=== PATIENT | female | born 1955 | race Caucasian/White ===

== ENCOUNTER 2016-11-20 13:42 | Emergency (ER) | payer BC, MEDICAID ==
[~2016-11-20] VITALS: Ht 167.6 cm; Wt 77.1 kg
[2016-11-20] MEDS ORDERED: SODIUM CHLORIDE 0.9% 1,000 ML IV ONE (15:04)
[2016-11-20] MEDS ORDERED: KETOROLAC TROMETH 30 MG/ML 1ML VIAL IV ONE (15:15)
[2016-11-20] MEDS ORDERED: METOCLOPRAMIDE HCL 5MG/ml INJ 2ml VIAL IV ONE (15:15)
[2016-11-20 15:18] LABS: Basophils # (auto) 0.1 uL; CONDITION Y; DEFINITIVE SEE PRINTOUT; Eosinophils # (auto) 0.1 uL; Eosinophils % (auto) 1.6 % (0.0-7.0); Lymphocytes # (auto) 2.2 uL; Monocytes # (auto) 0.5 uL; Neutrophils # (auto) 4.2 uL; White Blood Cell 7.1 10^3/uL (4.4-10.8)
[2016-11-20 15:23] LABS: Basophils % (auto) 1.2 % (0.0-2.0); Hematocrit 41.8 % (36.0-46.0); Lymphocytes % (auto) 30.6 % (10.0-50.0); Mean Corpuscular Hemoglobin 33.8 pg (28.0-32.0); Mean Corpuscular Hgb Conc. 33.4 g/dL (32.0-36.0); Mean Corpuscular Volume 101.2 fL (80.0-100.0); Mean Platelet Volume 8.8 fL (7.4-10.4); Monocytes % (auto) 7.4 % (0.0-12.0); Neutrophils % (auto) 59.2 % (37.0-80.0); Platelet Count (auto) 278 10^3/uL (140-450); Red Cell Distribution Width 15.4 % (11.6-16.0)
[2016-11-20 15:36] LABS: Albumin 3.8 g/dL (3.4-5.0); BUN/Creatinine Ratio 16.1; Bilirubin, Total 0.7 mg/dL (0.2-1.0); Calcium 8.8 mg/dL (8.5-10.1); Magnesium 2.5 mg/dL (1.6-2.6); Potassium 3.8 mmol/L (3.5-5.1); Total Protein 7.1 g/dL (6.4-8.2)
[2016-11-20] MEDS ORDERED: cefTRIAXone 1GM/50ML D5W 50 ML IV ONE ×2 (16:50→17:00)
[2016-11-20 17:37] VITALS: BP 122/56
== END 2016-11-20 17:52 | disposition home or self-care (01) ==
LOC: ER 13:42
DX: N39.0 Urinary tract infection, site not specified (principal); K80.20 Calculus of gallbladder without cholecystitis without obstruction; M06.9 Rheumatoid arthritis, unspecified; E78.5 Hyperlipidemia, unspecified; E07.9 Disorder of thyroid, unspecified; Z90.49 Acquired absence of other specified parts of digestive tract; Z88.8 Allergy status to other drugs, medicaments and biological substances; Z88.1 Allergy status to other antibiotic agents; Z90.710 Acquired absence of both cervix and uterus
CPT/HCPCS: 36415; 71020; 76705; 80053; 83735; 85025; 96361; 96365; 96375; 99285; J0696; J1885; J2765; J7030

== ENCOUNTER 2018-07-30 11:33 | Emergency (ER) | payer MEDICAID ==
[~2018-07-30] VITALS: Ht 162.6 cm; Wt 74.8 kg
[2018-07-30] MEDS ORDERED: FAMOTIDINE (10MG/ML) 2ML VL IV ONE (12:00)
[2018-07-30 12:14] LABS: Urine WBC None Seen /hpf (0 - 5)
[2018-07-30 12:29] LABS: Urine Bacteria NONE SEEN /hpf (None Seen); Urine Blood Negative /uL (Negative); Urine Specific Gravity 1.014 (1.001-1.035)
[2018-07-30 13:32] LABS: Basophils # (auto) 0.1 uL; Basophils % (auto) 1.3 % (0.0-2.0); Eosinophils # (auto) 0.1 uL; Eosinophils % (auto) 1.5 % (0.0-7.0); Hematocrit 42.3 % (36.0-46.0); Hemoglobin 13.9 g/dL (12.2-16.2); Lymphocytes # (auto) 1.7 uL; Lymphocytes % (auto) 31.5 % (10.0-50.0); Mean Corpuscular Hemoglobin 33.2 pg (28.0-32.0); Mean Corpuscular Volume 100.6 fL (80.0-100.0); Monocytes # (auto) 0.5 uL; Monocytes % (auto) 8.9 % (0.0-12.0); Neutrophils # (auto) 3.1 uL; Neutrophils % (auto) 56.8 % (37.0-80.0); Nucleated Red Blood Cells % 0.1 %; Platelet Count (auto) 260 10^3/uL (140-450); White Blood Cell 5.4 10^3/uL (4.4-10.8)
[2018-07-30 13:45] LABS: Alanine Aminotransferase 39 U/L (13-56); Albumin 3.8 g/dL (3.4-5.0); Anion Gap 6 (5-15); Aspartate Aminotransferase 28 U/L (15-37); Blood Urea Nitrogen 12 mg/dL (7-18); Carbon Dioxide 29 mmol/L (21-32); Chloride 108 mmol/L (98-107); Glucose 102 mg/dL (74-106); Potassium 3.9 mmol/L (3.5-5.1); Sodium 143 mmol/L (136-145)
[2018-07-30 13:52] LABS: Alkaline Phosphatase 80 U/L (45-117); BUN/Creatinine Ratio 22.2; Bilirubin, Total 0.5 mg/dL (0.2-1.0); GFR African American 146 mL/min; GFR Non-African American 121 mL/min; Total Protein 6.9 g/dL (6.4-8.2)
[2018-07-30 15:22] VITALS: BP 116/67
== END 2018-07-30 15:22 | disposition home or self-care (01) ==
LOC: ER 11:33
DX: R10.84 Generalized abdominal pain (principal); E78.5 Hyperlipidemia, unspecified; E07.9 Disorder of thyroid, unspecified; Z90.49 Acquired absence of other specified parts of digestive tract; Z88.1 Allergy status to other antibiotic agents; Z88.8 Allergy status to other drugs, medicaments and biological substances; Z91.040 Latex allergy status; Z90.710 Acquired absence of both cervix and uterus
CPT/HCPCS: 36415; 74176; 80053; 81001; 83690; 84484; 85025; 93005; 94761; 96374; 99284; J3490

== ENCOUNTER 2019-03-03 12:05 | Emergency (ER) | payer MEDICAID ==
[~2019-03-03] VITALS: Ht 165.1 cm; Wt 74.8 kg
[2019-03-03 15:28] VITALS: BP 106/82
[2019-03-03] MEDS ORDERED: DexAMETHasone SOD PHOS 10MG/1ML VIAL INJ IM ONE (17:45)
== END 2019-03-03 18:09 | disposition home or self-care (01) ==
LOC: ER 12:13
DX: M54.16 Radiculopathy, lumbar region (principal); M25.552 Pain in left hip; K21.9 Gastro-esophageal reflux disease without esophagitis; E78.5 Hyperlipidemia, unspecified; Z90.49 Acquired absence of other specified parts of digestive tract; Z90.710 Acquired absence of both cervix and uterus; Z87.11 Personal history of peptic ulcer disease; Z88.1 Allergy status to other antibiotic agents; Z91.040 Latex allergy status; Z88.8 Allergy status to other drugs, medicaments and biological substances
CPT/HCPCS: 96372; 99283; J1100

== ENCOUNTER 2019-06-14 13:39 | Emergency (ER) | payer MEDICAID ==
[~2019-06-14] VITALS: Ht 165.1 cm; Wt 75.3 kg
[2019-06-14 13:49] VITALS: BP 130/85
[2019-06-14] MEDS ORDERED: cefTRIAXone SOD 1,000 MG VL IM ONE (14:30)
== END 2019-06-14 15:03 | disposition home or self-care (01) ==
LOC: ER 13:39
DX: J02.9 Acute pharyngitis, unspecified (principal); K21.9 Gastro-esophageal reflux disease without esophagitis; E07.9 Disorder of thyroid, unspecified; E78.5 Hyperlipidemia, unspecified; Z88.1 Allergy status to other antibiotic agents; Z91.040 Latex allergy status; Z88.8 Allergy status to other drugs, medicaments and biological substances
CPT/HCPCS: 96372; 99283; J0696

== ENCOUNTER 2022-04-04 09:03 | Emergency (ER) | payer OTHER, MEDICAID ==
[~2022-04-04] VITALS: Ht 162.6 cm; Wt 70.8 kg
[2022-04-04] MEDS ORDERED: LIDOCAINE VISCOUS 2% 15ML UD PO ONE (09:45)
[2022-04-04] MEDS ORDERED: MAALOX PLUS or MAALOX 30 ML PO ONE (09:45)
[2022-04-04] MEDS ORDERED: ONDANSETRON ODT 4 MG TAB PO ONE (09:45)
[2022-04-04] MEDS ORDERED: FAMOTIDINE 20 MG TAB PO ONE (09:45)
[2022-04-04 09:46] LABS: Basophils # (auto) 0.1 10 ^3/uL (0-0.2); Basophils % (auto) 1.1 % (0.0-2.0); Eosinophils # (auto) 0 10 ^3/uL (0-0.8); Hematocrit 44.1 % (36.0-46.0); Hemoglobin 14.6 g/dL (12.2-16.2); Lymphocytes # (auto) 0.5 10 ^3/uL (0.4-5.4); Lymphocytes % (auto) 9.8 % (10.0-50.0); Mean Corpuscular Hemoglobin 32.9 pg (28.0-32.0); Mean Corpuscular Hgb Conc. 33.2 g/dL (32.0-36.0); Mean Corpuscular Volume 99.2 fL (80.0-100.0); Monocytes # (auto) 0.9 10 ^3/uL (0-1.3); Monocytes % (auto) 16.2 % (0.0-12.0); Neutrophils # (auto) 3.8 10 ^3/uL (1.6-8.6); Neutrophils % (auto) 72.9 % (37.0-80.0); Red Blood Cells 4.45 10^6/uL (4.0-5.20); White Blood Cell 5.3 10^3/uL (4.4-10.8)
[2022-04-04 10:07] LABS: Albumin 4.4 g/dL (3.4-5.0); Calcium 9.1 mg/dL (8.5-10.1); Potassium 4.1 mmol/L (3.5-5.1)
[2022-04-04 10:10] LABS: BUN/Creatinine Ratio 16.4
[2022-04-04 10:36] LABS: Urine Bacteria NONE SEEN /hpf (None Seen); Urine Blood Negative /uL (Negative); Urine Mucus FEW (None Seen); Urine WBC 1 /hpf (0 - 5)
[2022-04-04] MEDS ORDERED: ONDA-144 PO (12:11)
[2022-04-04 12:25] VITALS: BP 106/64
== END 2022-04-04 12:30 | disposition home or self-care (01) ==
LOC: ER 09:03
DX: B34.9 Viral infection, unspecified (principal); J02.9 Acute pharyngitis, unspecified; K21.9 Gastro-esophageal reflux disease without esophagitis; E78.5 Hyperlipidemia, unspecified; J45.909 Unspecified asthma, uncomplicated; Z90.710 Acquired absence of both cervix and uterus; Z90.49 Acquired absence of other specified parts of digestive tract
CPT/HCPCS: 36415; 71045; 80053; 81001; 84484; 85025; 87804; 93005; 99285; Q0162

== ENCOUNTER 2023-08-15 12:06 | Emergency (ER) | payer OTHER, MEDICAID ==
[~2023-08-15] VITALS: Ht 162.6 cm; Wt 80.0 kg
[~2023-08-15 12:06] MED LIST: ONDA-144 PO
[2023-08-15 13:19] VITALS: BP 115/57; PULSE 75; RESP 18; TEMP 97.6; O2SAT 95
[2023-08-15] MEDS: HYDROcodone-ACET 5/325MG TAB PO ONE (14:32)
== END 2023-08-15 16:04 | disposition home or self-care (01) ==
LOC: ER 12:06
DX: S09.8XXA Other specified injuries of head, initial encounter (principal); M54.2 Cervicalgia; F41.9 Anxiety disorder, unspecified; K21.9 Gastro-esophageal reflux disease without esophagitis; E78.5 Hyperlipidemia, unspecified; E07.9 Disorder of thyroid, unspecified; Z90.49 Acquired absence of other specified parts of digestive tract; Z90.710 Acquired absence of both cervix and uterus; Z90.89 Acquired absence of other organs; Z88.8 Allergy status to other drugs, medicaments and biological substances; Z88.1 Allergy status to other antibiotic agents; Z91.040 Latex allergy status; W17.89XA Other fall from one level to another, initial encounter; Y93.89 Activity, other specified; Y92.89 Other specified places as the place of occurrence of the external cause; Y99.8 Other external cause status
CPT/HCPCS: 70450; 72040; 73564

== ENCOUNTER 2025-03-10 10:14 | Inpatient (IN) | payer MEDICARE, MEDICAID ==
[~2025-03-10] VITALS: Ht 160 cm; Wt 81.0 kg
[~2025-03-10 10:14] MED LIST changes: +ALEN70TA74 PO; +ATOR20TA50 PO; +AZEL0.1S NAS; +CHOL20002 PO; +CICL8SOL21 TOP; +DICY-89 PO; +FOLI-119 PO; +FURO40TA4 PO; +GABA-339 PO; +LIDO2.5C3 EXT; +MELO15TA29 PO; +METH5INJ SC; +PANT40TA57 PO; +POTA-180 PO; +TIZA-142 PO
--- NOTE | 2025-03-10 10:46 | ED.PDOC ---
History of Present Illness HPI Comments This is a 69 year old female presenting to the ED with chief complaint of flank pain and extremity swelling. Patient reports that she has been experiencing right sided flank pain for the past few days that has now radiated across to the left side, now a 8-9/10 in pain. Patient relays that she is also experiencing associated bilateral ankle swelling, nausea, vomiting, diarrhea, fever, chills, dysuria, and urinary frequency over the past 3 weeks. Patient states she was recently worked up by her PCP for possible CHF. Patient denies any headache, syncope, dizziness, abdominal pain, chest pain, or SOB. Chief Complaint: Extremity Swelling Time Seen by MD: 10:43 Primary Care Provider: James Reviewed Notes: Nurses Notes, Medications, Allergies Allergies: Coded Allergies: Bacitracin (Verified Allergy, Unknown, 04/08/15) Ciprofloxacin (Verified Allergy, Unknown, 10/18/17) Latex (Verified Allergy, Unknown, 10/18/17) Neomycin (Verified Allergy, Unknown, 04/08/15) Nitrofurantoin (Verified Allergy, Unknown, 10/18/17) Polymyxin B (Verified Allergy, Unknown, 04/08/15) Promethazine (Verified Allergy, Unknown, 10/18/17) Uncoded Allergies: STEROIDS (Allergy, Unknown, 04/08/15) Home Meds Active Scripts Ondansetron (Zofran) 4 Mg Tab, 4 MG PO Q8HPRN PRN for 3 Days, #9 TAB Prov:ANNMARIE LOUIS MD 04/04/22 Information Source: Patient Mode of Arrival: Ambulatory Severity: Moderate Timing: Weeks Duration: Since onset Prehospital treatment: None Past Medical History PAST MEDICAL HISTORY: Anxiety, Cancer (Skin), GERD, High Lipids, PUD, Thyroid Past Medical History (Other): Prediabetes, gastritis, chronic neck/back pain, Mitral valve prolapse, Rheumatoid arthritis Surgical History: Appendectomy, Cholecystectomy, Hysterectomy, Tonsillectomy CAD TECHNICIAN History: No Pertinent CAD TECHNICIAN History Family History Family History: Reviewed,noncontributory to illness, Family hx of DM, Family hx of Cancer, Family hx of heart sunday Social History Smoker: Non-Smoker Alcohol: Denies ETOH Use Drugs: Denies Drug Use Lives In: Home Constitutional: reports: chills, fever; denies: diaphoresis, fatigue, malaise, sweats, weakness, others EENTM: denies: blurred vision, double vision, ear bleeding, ear discharge, ear drainage, ear pain, ear ringing, eye pain, eye redness, hearing loss, mouth pain, mouth swelling, nasal discharge, nose bleeding, nose congestion, nose andrew n, photophobia, tearing, throat pain, throat swelling, voice changes, others Respiratory: denies: cough, hemoptysis, orthopnea, SOB at rest, shortness of breath, SOB with excertion, stridor, wheezing, others Cardiovascular: reports: edema; denies: chest pain, dizzy spells, diaphoresis, Dyspnea on exertion, irregular heart beat, left arm pain, lightheadedness, palpitations, PND, syncope, others Gastrointestinal: reports: diarrhea, nausea, vomiting; denies: abdomen distended, abdominal pain, blood streaked bowels, constipated, dysphagia, difficulty swallowing, hematemesis, melena, poor appetite, poor fluid intake, rectal bleeding, rectal pain, others Genitourinary: reports: dysuria, flank pain, frequency; denies: abnormal vagina bleeding, burning, dyspareunia, hematuria, incontinence, pain, , vagina discharge, urgency, others Neurological: denies: dizziness, fainting, headache, left sided numbness, left sided weakness, numbness, paresthesia, pre-existing deficit, right sided numbness, right sided weakness, seizure, speech problems, tingling, tremors, weakness, others Musculoskeletal: reports: back pain, neck pain; denies: gout, joint pain, joint swelling, muscle pain, muscle stiffness, others Integumetry: denies: bruises, change in color, change in hair/nails, dryness, laceration, lesions, lumps, rash, wounds, others Allergic/Immunocompromised: denies: Difficulty Healing, Frequent Infections, Hives, Itching, others Hematologic/Lymphatic: denies: anemia, blood clots, easy bleeding, easy bruising, swollen glands, others Endocrine: denies: excessive hunger, excessive sweating, excessive thirst, excessive urination, flushing, intolerance to cold, intolerance to heat, unexplained weight gain, unexplained weight loss, others Psychiatric: denies: anxiety, bipolar disorder, depression, hopeless, panic disorder, schizophrenia, sleepless, suicidal, others All Other Systems: Reviewed and Negative Physical Exam General Appearance: Moderate Distress HEENT: Normal ENT Inspection, Pharynx Normal, TMs Normal Neck: Full Range of Motion, Non-Tender, Normal, Normal Inspection Respiratory: Chest Non-Tender, Lungs Clear, No Accessory Muscle Use, No Respiratory Distress, Normal Breath Sounds Cardiovascular: No Edema, No JVD, No Murmur, No Gallop, Normal Peripheral Pulses, Regular Rate/Rhythm Breast Exam: Deferred Gastrointestinal: No Organomegaly, Non Tender, No Pulsatile Mass, Normal Bowel Sounds, Soft Genitalia: Deferred Pelvic: Deferred Rectal: Deferred Extremities: No calf tenderness, Normal capillary refill, Pedal edema Musculoskeletal : Apperance: Normal Neurologic: Alert, clinical nurse occupational medicine II-XII nml as Tested, Motor Weakness, Normal Affect, Normal Mood, No Sensory Deficits Cerebellar Function: Normal Reflexes: Normal Skin: Dry, Normal Color, Warm Lymphatic: No Adenopathy Was a procedure done? Was a procedure done?: No Differential Dx Considerations may include: Generalized weakness, UTI, kidney stones, viral syndrome X-Ray, Labs, Meds, VS Vital Signs Date Time Temp Pulse Resp B/P (MAP) Pulse Ox O2 Delivery O2 Flow Rate FiO2 03/10/25 11:23 82 16 129/85 03/10/25 11:16 82 16 96 Room Air* 0 21 03/10/25 11:12 97.5 83 14 129/85 (100) 96 97.5 03/10/25 10:17 97.8 88 12 126/89 96 97.8 Lab Test 03/10/25 10:49 03/10/25 10:23 Range/Units Sodium Level 138 136-145 mmol/L Potassium Level 3.5 3.5-5.1 mmol/L Chloride Level 100 98-107 mmol/L Carbon Dioxide Level 27 20-31 mmol/L Anion Gap 11 5-15 Blood Urea Nitrogen 12 9-23 mg/dL Creatinine 0.73 0.550-1.02 mg/dL Glomerular Filtration Rate Calc 88 >90 mL/min BUN/Creatinine Ratio 16.4 10.0-20.0 Serum Glucose 122 H 74-106 mg/dL Calcium Level 9.9 8.7-10.4 mg/dL Total Bilirubin 1.0 0.2-1.0 mg/dL Aspartate Amino Transferase (AST) 26 13-40 U/L Alanine Aminotransferase (ALT) 20 7-40 U/L Alkaline Phosphatase 115 46-116 U/L Total Protein 8.0 5.7-8.2 g/dL Albumin 4.9 H 3.2-4.8 g/dL Lipase 33 12-53 U/L Urine Color Light-yellow Yellow Urine Clarity Clear Clear Urine pH 6.5 5.0-9.0 Urine Specific [place] 1.020 1.001-1.035 Urine Protein Trace H Negative Urine Ketones Negative Negative Urine Blood Negative Negative /uL Urine Nitrite Negative Negative Urine Bilirubin Negative Negative Urine Urobilinogen Normal Negative mg/dL Urine Leukocyte Esterase Negative Negative /uL Urine RBC 2 0 - 4 /hpf Urine Microscopic WBC < 1 0-5 /HPF Urine Squamous Epithelial Cells Few <5 /hpf Urine Bacteria None seen None Seen /hpf Urine Hyaline Casts Few 0 - 2 /lpf Urine Mucus Few None Seen Urine Glucose Normal Normal mg/dL Current Medications Medications (Trade) Dose Ordered Sig/Lisbet Route Start Time Stop Time Status Last Admin Ondansetron HCl (Zofran) 4 mg ONCE ONCE IV 03/10/25 10:45 03/10/25 10:46 DC 03/10/25 11:22 Sodium Chloride 1,000 ml @ 1,000 mls/hr Q1H ONCE IVB 03/10/25 10:45 03/10/25 11:44 DC 03/10/25 11:20 Morphine Sulfate 4 mg ONCE ONCE IV 03/10/25 10:45 03/10/25 10:46 DC 03/10/25 11:23 CT Abd/Pel indicates: Limited evaluation without contrast. No evidence for obstructive uropathy. Cholecystectomy. Other findings as described. The patient was given Zofran 4 mg IV push The patient was given 1 L bolus of normal saline The patient given morphine 4 mg IV for the pain The urine test is negative for any infection The chemistry panel is within normal limits The patient is being admitted with a diagnosis of the type abdominal pain Images Reviewed?: Images reviewed and evaluated by me Time of 1ST Reevaluation: 13:31 Reevaluation 1ST: Improved Patient Education/Counseling: Diagnosis, Treatment Family Education/Counseling: No Family Present SEPSIS Sepsis Screen Date sepsis recognized/suspect: Mar 10, 2025 Time Sepsis recognized/suspect: 1018 Recent Procedure: No On Antibiotic Therapy: No Respiratory Rate >20: No Heart Rate >90: No Temp<36 C (96.8 F) or >38.3 C: No SBP <90 or MAP <65 mmHG: No New Acute Mental Status Change: No Is the patient on CPAP, BIPAP,: No Physician Orders Ct Ab Pel Wo Con-No Oral Or Iv (03/10/25 10:38) Heplock Iv (03/10/25 10:38) Undertaker Assistant (03/10/25 10:38) Blood Pressure (03/10/25 10:38) Pulse Oximetry (03/10/25 10:38) Vital Signs Date Time Temp Pulse Resp B/P (MAP) Pulse Ox O2 Delivery O2 Flow Rate FiO2 03/10/25 11:23 82 16 129/85 03/10/25 11:16 82 16 96 Room Air* 0 21 03/10/25 11:12 97.5 83 14 129/85 (100) 96 97.5 03/10/25 10:17 97.8 88 12 126/89 96 97.8 Medications Medications Dose Ordered Sig/Lisbet Route Start Time Stop Time Status Last Admin Dose Admin Morphine Sulfate 4 mg ONCE ONCE IV 03/10/25 10:45 03/10/25 10:46 DC 03/10/25 11:23 Ondansetron HCl 4 mg ONCE ONCE IV 03/10/25 10:45 03/10/25 10:46 DC 03/10/25 11:22 Sodium Chloride 1,000 ml @ 1,000 mls/hr Q1H ONCE IVB 03/10/25 10:45 03/10/25 11:44 DC 03/10/25 11:20 Departure 1 Departure Time of Disposition: 13:31 Impression: Primary Impression: Intractable abdominal pain Additional Impression: Pedal edema Disposition: ADMITTED INPATIENT Admit to: Med Surg Condition: Fair Critical Care Note Critical Care Time?: No Stability Stability form required: No Heart Score Heart Score: Heart Score Response (Comments) Value History Moderate Suspicious 1 EKG Normal 0 Age >65 2 Risk Factors 1 or 2 risk factors 1 Troponin Normal limit 0 Total 4 I personally scribed for VALENTE ZARAGOZA MD ([email or web address]) on 03/10/25 at 10:46. El ectronically submitted by Alfonzo Smallwood ([email or web address]). I personally scribed for VALENTE ZARAGOZA MD ([email or web address]) on 03/10/25 at 12:05. Electronically submitted by Alfonzo Smallwood ([email or web address]). VALENTE ZARAGOZA MD Mar 10, 2025 10:46
[2025-03-10 11:16] VITALS: PULSE 82; RESP 16; O2SAT 96
[2025-03-10] MEDS: SODIUM CHLORIDE 0.9% 1,000 ML IVB ONE (11:20)
[2025-03-10] MEDS: ONDANSETRON HCL 4 MG/2 ML VIAL IV ONE (11:22)
[2025-03-10] MEDS: MORPHINE SULFATE 4 MG/ML SYR/VIAL IV ONE (11:23)
[2025-03-10 11:39] LABS: Alanine Aminotransferase 20 U/L (7-40); Albumin 4.9 g/dL (3.2-4.8); Alkaline Phosphatase 115 U/L (46-116); Anion Gap 11 (5-15); BUN/Creatinine Ratio 16.4 (10.0-20.0); Bilirubin, Total 1.0 mg/dL (0.2-1.0); Blood Urea Nitrogen 12 mg/dL (9-23); Calcium 9.9 mg/dL (8.7-10.4); Carbon Dioxide 27 mmol/L (20-31); Chloride 100 mmol/L (98-107); Glucose 122 mg/dL (74-106); Lipase 33 U/L (12-53); Potassium 3.5 mmol/L (3.5-5.1); Sodium 138 mmol/L (136-145); Total Protein 8.0 g/dL (5.7-8.2)
--- NOTE | 2025-03-10 11:43 | DVH ---
INDICATION: flank pain TECHNIQUE: CT axial images of the abdomen and pelvis are obtained without contrast. Coronal and sagittal reformats were obtained. Radiation Dose Information: CTDI volume is 12.75 mGy. Dose-length product is 602.16 mGy*cm COMPARISON: 03/07/2025 FINDINGS: There is limited interpretation of the abdomen and pelvis without administration of intravenous contrast. Lung bases demonstrate atelectasis. Adrenal glands, spleen, pancreas and liver unremarkable in shape. Cholecystectomy. Kidneys demonstrate no hydronephrosis /nephrolithiasis. Stomach is partially distended. Small bowel loops are normal in caliber. Large bowel relatively nondistended. No secondary signs for appendicitis are present. Aortic atherosclerotic disease and tortuosity. Bladder partially distended. No free pelvic fluid. No inguinal lymphadenopathy. [id number] bilateral sacroiliac degenerative joint disease. Thoracolumbar dextrocurvature. Moderate thoracolumbar degenerative disc disease. IMPRESSION: Limited evaluation without contrast. No evidence for obstructive uropathy. Cholecystectomy. Other findings as described.
[2025-03-10 12:42] LABS: Urine Protein, UAD TRACE (Negative)
[2025-03-10 16:08] LABS: Hematocrit 45.2 % (36.0-46.0); Hemoglobin 15.0 g/dL (12.2-16.2); Mean Corpuscular Hemoglobin 33.3 pg (28.0-32.0); Mean Corpuscular Volume 100.2 fL (80.0-100.0); Nucleated Red Blood Cells % 0.1 %
[2025-03-10] MEDS ORDERED: HYDR-4798 PO (16:57)
[2025-03-10] MEDS ORDERED: ONDANSETRON HCL 4 MG/2 ML VIAL IV PRN (17:00)
[2025-03-10] MEDS ORDERED: ACETAMINOPHEN 325 MG TAB PO PRN (17:00)
--- NOTE | 2025-03-10 17:21 | DVHHP2 ---
History of Present Illness Reason for Visit: Bilateral lower extremity edema History of Present Illness Maggy Hugo is a 69-year-old female with past medical history of hyperlipidemia, GERD, PUD, hypothyroidism, rheumatoid arthritis, anxiety, chronic pain, and skin cancer, who came to the hospital for bilateral lower extremity edema. Cardiovascular: hyperipidemia GI: GERD Psych: Anxiety Endocrine: Hypothyroidism Past Surgical History: Appendectomy, Cholecystectomy, Hysterectomy, Other (foot surgery), Tonsillectomy Smoke: No ALCOHOL: none Drugs: None Lives: with Family Domestic Violence: Neg Review of Systems Constitutional: No: Fever, Chills, Sweats, Weakness, Malaise, Other Eyes: No: Pain, Vision change, Conjunctivae inflammation, Eyelid inflammation, Other, Redness ENT: No: Ear pain, Ear discharge, Nose pain, Nose discharge, Nose congestion, Mouth pain, Mouth swelling, Throat pain, Throat swelling, Other Respiratory: No: Cough, Dry, Shortness of breath, SOB with excertion, Wheezing, Hemoptysis, Pleuritic Pain, Sputum, Wheezing, Other Cardiovascular: Edema (bilateral lower extremities); No: Chest Pain, Palpitations, Orthopnea, Paroxysmal Noc. Dyspnea, Lt Headedness, Other Gastrointestinal: No: Nausea, Vomiting, Abdominal Pain, Diarrhea, Constipation, Melena, Hematochezia, Other Genitourinary: No Dysuria, No Frequency, No Incontinence, No Hematuria, No Retention, No Other Musculoskeletal: No: other, neck pain, shoulder pain, arm pain, back pain, hand pain, leg pain, foot pain Skin: No: Rash, Lesions, Jaundice, Bruising, Other Neurological: No: Weakness, Numbness, Incoordination, Change in speech, Confusion, Seizures, Other Allergies: Coded Allergies: Bacitracin (Verified Allergy, Unknown, 04/08/15) Ciprofloxacin (Verified Allergy, Unknown, 10/18/17) Latex (Verified Allergy, Unknown, 10/18/17) Neomycin (Verified Allergy, Unknown, 04/08/15) Nitrofurantoin (Verified Allergy, Unknown, 10/18/17) Polymyxin B (Verified Allergy, Unknown, 04/08/15) Promethazine (Verified Allergy, Unknown, 10/18/17) Uncoded Allergies: STEROIDS (Allergy, Unknown, 04/08/15) Medications Current Medications Medications Dose Ordered Sig/Lisbet Route Start Time Stop Time Status Last Admin Dose Admin Sodium Chloride 10 ml Q8HR IV 03/10/25 22:00 UNV Ondansetron HCl 4 mg Q4HP PRN IV 03/10/25 17:00 UNV Docusate Sodium 100 mg BIDPRN PRN PO 03/10/25 17:00 UNV Acetaminophen 650 mg Q6HP PRN PO 03/10/25 17:00 UNV Exam Vital Signs Vital Signs Date Time Temp Pulse Resp B/P (MAP) Pulse Ox O2 Delivery O2 Flow Rate FiO2 03/10/25 14:59 97.1 64 14 123/52 (75) 97 97.1 03/10/25 11:16 Room Air* 0 21 General Appearance: Alert, Oriented X3, Cooperative, No acute distress HEENT: Atraumatic, PERRLA Respiratory: Clear to auscultation, Normal air movement Cardiovascular: Regular rate Abdominal: Normal bowel sounds, Soft, No tenderness, No hepatospenomegaly Extremities: No clubbing, No cyanosis, Other (edema to bilateral lower extremities, ) Skin: No rashes Neuro: Normal gait, Normal speech Psych/Mental Status: Mental status NL, Mood NL Labs/Xrays Labs Test 03/10/25 10:49 03/10/25 10:23 Range/Units White Blood Count 11.3 H 4.4-10.8 10^3/uL Red Blood Count 4.52 4.0-5.20 10^6/uL Hemoglobin 15.0 12.2-16.2 g/dL Hematocrit 45.2 36.0-46.0 % Mean Corpuscular Volume 100.2 H 80.0-100.0 fL Mean Corpuscular Hemoglobin 33.3 H 28.0-32.0 pg Mean Corpuscular Hemoglobin Concent 33.2 32.0-36.0 g/dL Red Cell Distribution Width 14.6 H 11.8-14.3 % Platelet Count 373 140-450 10^3/uL Mean Platelet Volume 8.5 6.9-10.8 fL Neutrophils (%) (Auto) 86.0 H 37.0-80.0 % Lymphocytes (%) (Auto) 8.5 L 10.0-50.0 % Monocytes (%) (Auto) 4.4 0.0-12.0 % Eosinophils (%) (Auto) 0.1 0.0-7.0 % Basophils (%) (Auto) 1.0 0.0-2.0 % Neutrophils # (Auto) 9.7 H 1.6-8.6 10 ^3/uL Lymphocytes # (Auto) 1.0 0.4-5.4 10 ^3/uL Monocytes # (Auto) 0.5 0-1.3 10 ^3/uL Eosinophils # (Auto) 0 0-0.8 10 ^3/uL Basophils # (Auto) 0.1 0-0.2 10 ^3/uL Nucleated Red Blood Cells 0.1 % Sodium Level 138 136-145 mmol/L Potassium Level 3.5 3.5-5.1 mmol/L Chloride Level 100 98-107 mmol/L Carbon Dioxide Level 27 20-31 mmol/L Anion Gap 11 5-15 Blood Urea Nitrogen 12 9-23 mg/dL Creatinine 0.73 0.550-1.02 mg/dL Glomerular Filtration Rate Calc 88 >90 mL/min BUN/Creatinine Ratio 16.4 10.0-20.0 Serum Glucose 122 H 74-106 mg/dL Calcium Level 9.9 8.7-10.4 mg/dL Total Bilirubin 1.0 0.2-1.0 mg/dL Aspartate Amino Transferase (AST) 26 13-40 U/L Alanine Aminotransferase (ALT) 20 7-40 U/L Alkaline Phosphatase 115 46-116 U/L Total Protein 8.0 5.7-8.2 g/dL Albumin 4.9 H 3.2-4.8 g/dL Lipase 33 12-53 U/L Urine Color Light-yellow Yellow Urine Clarity Clear Clear Urine pH 6.5 5.0-9.0 Urine Specific [place] 1.020 1.001-1.035 Urine Protein Trace H Negative Urine Ketones Negative Negative Urine Blood Negative Negative /uL Urine Nitrite Negative Negative Urine Bilirubin Negative Negative Urine Urobilinogen Normal Negative mg/dL Urine Leukocyte Esterase Negative Negative /uL Urine RBC 2 0 - 4 /hpf Urine Microscopic WBC < 1 0-5 /HPF Urine Squamous Epithelial Cells Few <5 /hpf Urine Bacteria None seen None Seen /hpf Urine Hyaline Casts Few 0 - 2 /lpf Urine Mucus Few None Seen Urine Glucose Normal Normal mg/dL TECHNIQUE: CT axial images of the abdomen and pelvis are obtained without contrast. FINDINGS: There is limited interpretation of the abdomen and pelvis without administration of intravenous contrast. Lung bases demonstrate atelectasis. Adrenal glands, spleen, pancreas and liver unremarkable in shape. Cholecystectomy. Kidneys demonstrate no hydronephrosis /nephrolithiasis. Stomach is partially distended. Small bowel loops are normal in caliber. Large bowel relatively nondistended. No secondary signs for appendicitis are present. Aortic atherosclerotic disease and tortuosity. Bladder partially distended. No free pelvic fluid. No inguinal lymphadenopathy. [id number] bilateral sacroiliac degenerative joint disease. Thoracolumbar dextrocurvature. Moderate thoracolumbar degenerative disc disease. IMPRESSION: Limited evaluation without contrast. No evidence for obstructive uropathy. Cholecystectomy. Other findings as described. SEPSIS Sepsis Screen Date sepsis recognized/suspect: Mar 10, 2025 Time Sepsis recognized/suspect: 1017 Recent Procedure: No On Antibiotic Therapy: No Respiratory Rate >20: No Heart Rate >90: No Temp<36 C (96.8 F) or >38.3 C: No SBP <90 or MAP <65 mmHG: No New Acute Mental Status Change: No Is the patient on CPAP, BIPAP,: No Physician Orders Ct Ab Pel Wo Con-No Oral Or Iv (03/10/25 10:38) Heplock Iv (03/10/25 10:38) Urology Physician (03/10/25 10:38) Blood Pressure (03/10/25 10:38) Pulse Oximetry (03/10/25 10:38) Admit (03/10/25 16:48) Code Status (03/10/25 16:48) Sodium Chloride Lock (Saline Lock Ns) (03/10/25 22:00) Ondansetron Hcl (Zofran) (03/10/25 17:00) Docusate Sodium Capsule (Colace Capsule) (03/10/25 17:00) Complete Blood Count (03/11/25 04:00) Comprehensive Metabolic Panel (03/11/25 04:00) Cardiac Diet-2gna,Lofat,Lochol (03/10/25 Dinner) Echo 2d Mode Cardiac Dop (03/10/25 16:48) Condition: Serious (03/10/25 16:48) Acetaminophen Tablet (Tylenol Tablet) (03/10/25 17:00) Atorvastatin (Lipitor) (03/10/25 22:00) Hydrocodone-Acet 10/325mg Tab ([place] 10/ (03/10/25 17:00) Levothyroxine Tablet (Synthroid Tablet) (03/11/25 10:00) Morphine Extended Release Tab (Oramorph (03/10/25 22:00) Pantoprazole Tablet (Protonix Tablet) (03/10/25 22:00) (Nf) Cholecalciferol (Vitamin D3) (03/11/25 10:00) (Nf) Gabapentin (03/10/25 22:00) (Nf) Tizanidine Hydrochloride (Tizanidin (03/10/25 22:00) Dicyclomine Capsule (Bentyl Capsule) (03/10/25 17:00) Vital Signs Date Time Temp Pulse Resp B/P (MAP) Pulse Ox O2 Delivery O2 Flow Rate FiO2 03/10/25 14:59 97.1 64 14 123/52 (75) 97 97.1 03/10/25 11:23 82 16 129/85 03/10/25 11:16 82 16 96 Room Air* 0 21 03/10/25 11:12 97.5 83 14 129/85 (100) 96 97.5 03/10/25 10:17 97.8 88 12 126/89 96 97.8 Laboratory Tests Test 03/10/25 10:49 White Blood Count 11.3 10^3/uL (4.4-10.8) H Medications Medications Dose Ordered Sig/Lisbet Route Start Time Stop Time Status Last Admin Dose Admin Morphine Sulfate 4 mg ONCE ONCE IV 03/10/25 10:45 03/10/25 10:46 DC 03/10/25 11:23 4 MG Ondansetron HCl 4 mg ONCE ONCE IV 03/10/25 10:45 03/10/25 10:46 DC 03/10/25 11:22 4 MG Sodium Chloride 1,000 ml @ 1,000 mls/hr Q1H ONCE IVB 03/10/25 10:45 03/10/25 11:44 DC 03/10/25 11:20 1,000 MLS/HR Assessment/Plan Assessment/Plan Assessment: Pedal edema, Leukocytosis, Hypothyroidism, GERD, Hyperlipidemia, Chronic pain, Anxiety, Plan: Admit to Med-Surg, ECHO, BNP, IV Lasix, Manage/Monitor electrolytes closely, Home medications reconciled, Plan discussed with: Patient My Orders Orders - VIKTOR MCINTYRE Procedure Category Date Status Time Admit ADMIT 03/10/25 Transmitted 16:48 Code Status CODE 03/10/25 Transmitted 16:48 Sodium Chloride Lock PHA 03/10/25 Logged (Saline Lock Ns) 22:00 Ondansetron Hcl PHA 03/10/25 Logged (Zofran) 17:00 Docusate Sodium PHA 03/10/25 Logged Capsule (Colace 17:00 Complete Blood Count LAB 03/11/25 Verified 04:00 Comprehensive LAB 03/11/25 Verified Metabolic Panel 04:00 Cardiac DIET 03/10/25 Transmitted Diet-2gna,Lofat,Lochol Dinner Echo 2d Mode Cardiac US 03/10/25 Logged DOP 16:48 Condition: Serious IVELISSE 03/10/25 In Process 16:48 Acetaminophen Tablet PHA 03/10/25 Logged (Tylenol Tablet) 17:00 Atorvastatin (Lipitor) PHA 03/10/25 Transmitted 22:00 Hydrocodone-Acet PHA 03/10/25 Transmitted 10/325mg Tab ([place] 17:00 Levothyroxine Tablet PHA 03/11/25 Transmitted (Synthroid Tablet) 10:00 Morphine Extended PHA 03/10/25 Transmitted Release Tab (Oramorph 22:00 Pantoprazole Tablet PHA 03/10/25 Transmitted (Protonix Tablet) 22:00 (Nf) Cholecalciferol PHA 03/11/25 Transmitted (Vitamin D3) 10:00 (Nf) Gabapentin PHA 03/10/25 Transmitted 22:00 (Nf) Tizanidine PHA 03/10/25 Transmitted Hydrochloride 22:00 Dicyclomine Capsule PHA 03/10/25 Transmitted (Bentyl Capsule) 17:00 Date of Service: Mar 10, 2025 Billing Provider: VIKTOR MCINTYRE Common Visit Codes: [id number] INP/OBS CARE (MOD) VIKTOR MCINTYRE Mar 10, 2025 17:21
[2025-03-10] MEDS: HYDROcodone-ACET 10/325MG TAB PO PRN (18:09)
[2025-03-10] MEDS: LEVOTHYROXINE SODIUM 100 MCG TAB PO SCH (19:05)
[2025-03-10] MEDS: GABAPENTIN 300 MG CAP PO SCH (22:00)
[2025-03-10 22:15] VITALS: BP 130/73; PULSE 58; PULSE 66; RESP 17; RESP 18; TEMP 98.6; O2SAT 96; O2SAT 98
[2025-03-10] MEDS: MORPHINE SULF 15mg ER tab PO SCH (22:39)
[2025-03-10] MEDS: PANTOPRAZOLE 40 MG TAB PO SCH (22:39)
[2025-03-10] MEDS: SODIUM CHLOR 0.9% PF (SALINE LOCK) 10ML VIAL/SYR IV SCH (22:39)
[2025-03-10] MEDS: ATORVASTATIN 20 MG TAB PO SCH (22:39)
[2025-03-10] MEDS: Tizanidine Hydrochloride PO SCH (22:40)
[2025-03-11 01:00] VITALS: BP 122/72; PULSE 56; RESP 18; TEMP 98.5; O2SAT 95
[2025-03-11 05:00] VITALS: BP 122/73; PULSE 65; RESP 18; TEMP 97.8; O2SAT 99
[2025-03-11 06:34] LABS: Hematocrit 40.8 % (36.0-46.0); Hemoglobin 13.6 g/dL (12.2-16.2); Mean Corpuscular Hemoglobin 33.2 pg (28.0-32.0); Mean Corpuscular Volume 99.9 fL (80.0-100.0); Nucleated Red Blood Cells % 0.1 %
[2025-03-11 06:48] LABS: Alanine Aminotransferase 15 U/L (7-40); Albumin 4.0 g/dL (3.2-4.8); Alkaline Phosphatase 89 U/L (46-116); Anion Gap 10 (5-15); BUN/Creatinine Ratio 12.3 (10.0-20.0); Blood Urea Nitrogen 10 mg/dL (9-23); Calcium 9.3 mg/dL (8.7-10.4); Carbon Dioxide 28 mmol/L (20-31); Chloride 104 mmol/L (98-107); Glucose 98 mg/dL (74-106); Potassium 3.9 mmol/L (3.5-5.1); Sodium 142 mmol/L (136-145); Total Protein 6.5 g/dL (5.7-8.2)
[2025-03-11 06:49] LABS: Bilirubin, Total 0.9 mg/dL (0.2-1.0)
[2025-03-11 09:00] VITALS: BP 134/67; PULSE 91; RESP 17; TEMP 98.2; O2SAT 96
--- NOTE | 2025-03-11 10:18 | DVH ---
CLINICAL HISTORY: Bilateral leg swelling TECHNIQUE: Color and duplex doppler imagine of the bilateral lower extremity veins was performed. Vessel compression and augmentation if possible was also performed. COMPARISON: None FINDINGS: Right Lower Extremity: Right common femoral vein: Normal compressibility and flow. Right superficial femoral vein: Normal compressibility and flow. Right popliteal vein: Normal compressibility and flow. Left Lower Extremity: Left common femoral vein: Normal compressibility and flow. Left superficial femoral vein: Normal compressibility and flow. Left popliteal vein: Normal compressibility and flow. IMPRESSION: NO SONOGRAPHIC EVIDENCE FOR DEEP VENOUS THROMBOSIS IN THE BILATERAL LOWER EXTREMITY VEINS.
[2025-03-11] MEDS: CHOLECALCIFEROL (VITD3) 1,000UNIT=25mCg TAB PO SCH (10:45)
[2025-03-11] MEDS: DOCUSATE SOD 100 MG CAP PO PRN (10:48)
[2025-03-11] MEDS: FUROSEMIDE 20 MG/2 ML VIAL IV ONE (12:44)
[2025-03-11 13:00] VITALS: BP 121/86; PULSE 59; RESP 18; TEMP 98.3; O2SAT 99
--- NOTE | 2025-03-11 13:13 | DVHPNRES ---
Progress Note Date Seen: Mar 11, 2025 Resident Creating Document: ANDRIA JERONIMO RESIDENT Medical Necessity Reason Pt with a Central, PICC or Fol: No Subjective Review of Systems This is a 69 Year old female with past medical history of coronary angioplasty status post stent placement LAD 2015(by Dr. Toth) HLD, PUD, hypothyroidism, RA, anxiety disorder, chronic pain and skin cancer came to ER with a complaint of bilateral lower extremity swelling. Patient noted bilateral lower extremity swelling for few days switching gradually worsened day by day. Patient also stated unable to lie down in flat position, needs extra pillow for sleep. Patient denies any recent history of recent trauma, MVA or falls. Patient currently denies any chest pain, SOB, headache, abdominal pain, dysuria or any focal weakness. Patient compliance with her medication. Patient follow-up with cardiology Dr. Call. And rheumatology with Dr. Montoya. Past medical history: As above Past surgical history: Appendectomy, cholecystectomy, hysterectomy, CAD with stent, tonsillectomy Family history: Strong family history of coronary artery disease Personal history: Denies any smoking or illicit drug Allergy: Bacitracin, ciprofloxacin, latex, neomycin, metoprolol 10, polymyxin, promethazine, steroid PCP: Dr. Toth. Patient seen and evaluated in bedside. Patient able to ambulate but on examination bilateral lower extremity swelling noted. Currently denies any acute distress. Objective vital signs Vital Sign Date Time Temp Pulse Resp B/P (MAP) Pulse Ox O2 Delivery O2 Flow Rate FiO2 03/11/25 12:44 141/76 03/11/25 09:00 98.2 91 17 96 98.2 03/11/25 08:00 Room Air* 0 21 Total Intake and Output 03/10/25 03/10/25 03/11/25 15:00 23:00 07:00 Intake Total 300 ml Balance 300 ml medications Current Medications Medications Dose Ordered Sig/Lisbet Route Start Time Stop Time Status Last Admin Dose Admin Sodium Chloride 10 ml Q8HR IV 03/10/25 22:00 03/11/25 05:54 10 ML Ondansetron HCl 4 mg Q4HP PRN IV 03/10/25 17:00 Docusate Sodium 100 mg BIDPRN PRN PO 03/10/25 17:00 03/11/25 10:48 100 MG Acetaminophen 650 mg Q6HP PRN PO 03/10/25 17:00 Atorvastatin Calcium 20 mg HS PO 03/10/25 22:00 03/10/25 22:39 20 MG Acetaminophen/ Hydrocodone Bitart 1 tab TIDP PRN PO 03/10/25 17:00 03/11/25 12:49 1 TAB Levothyroxine Sodium 100 mcg QAM PO 03/10/25 07:00 03/11/25 06:03 100 MCG Morphine Sulfate 15 mg BID PO 03/10/25 22:00 03/11/25 10:45 15 MG Pantoprazole Sodium 40 mg BID PO 03/10/25 22:00 03/11/25 10:45 40 MG Cholecalciferol 2,000 unit DAILY PO 03/11/25 10:00 03/11/25 10:45 2,000 UNIT Gabapentin 600 mg TID PO 03/10/25 22:00 03/11/25 05:54 600 MG Patient Own Medication 0.5 tab HS PO 03/10/25 22:00 Dicyclomine HCl 10 mg BIDPRN PRN PO 03/10/25 17:00 03/24/25 16:59 Examination General Appearance: Alert, Oriented X3, Cooperative, No acute distress HEENT: Atraumatic, PERRLA Respiratory: Clear to auscultation, Normal air movement Cardiovascular: Regular rate Abdominal: Normal bowel sounds, Soft, No tenderness, No hepatospenomegaly Extremities: No clubbing, No cyanosis, bilateral lower extremity 2+ edema , no ulceration Skin: No rashes Neuro: Normal gait, Normal speech Psych/Mental Status: Mental status NL, Mood NL laboratory and microbiology Laboratory Tests 03/11/25 05:35 Test 03/11/25 05:35 Range/Units Serum Glucose 98 74-106 mg/dL Problem List/Assessment/Plan Problem List/Assessment/Plan Acute on chronic systolic/diastolic heart failure Coronary angioplasty status post stent placement LAD 2015(by Dr. Toth) Mixed hyperlipidemia Bilateral lower extremity edema Patient came with bilateral lower extremity edema associated exertional dyspnea BNP 88.50 Influenza A and B- negative Aspirin Furosemide Atorvastatin Echocardiogram ordered Venous duplex bilateral lower extremity: No sonographic evidence of Venous thrombosis bilateral lower extremity. Monitor labs and vitals Hypothyroidism TSH level 21.00 Follow T3 and free T4 Continue levothyroxine Patient often forgot to take medicine and sometimes takes with food. Muscle spasm Peripheral neuropathy Cervicalgia Rheumatoid arthritis Tizanidine Gabapentin Methotrexate hold by Rheumatology Dr. Montoya. GERD Pantoprazole Diet; cardiac GI prophylaxis: Pantoprazole DVT prophylaxis : Lovenox Goals of care discussion. 21 minute spent with patient. Full code status. Case discussed with Dr. Caraballo Plan discussed with: Patient, Other (Nurse) Date of Service: Mar 11, 2025 Billing Provider: RAISA CARABALLO MD Common Visit Codes: [id number] INP/OBS CARE(HIGH) ANDRIA JERONIMO RESIDENT Mar 11, 2025 13:13 RAISA CARABALLO MD Mar 12, 2025 15:17
[2025-03-11 14:04] LABS: COVID19 ANTIGEN SOFIA FIA NEGATIVE (NEGATIVE)
[2025-03-11 14:13] LABS: Free T3 2.57 pg/mL (2.3-4.2); Free T4 (Free Thyroxine) 1.0 ng/dL (0.89-1.76)
--- NOTE | 2025-03-11 16:17 | DVHSR ---
APPROVED REPORT EXAM: Two-dimensional and M-mode echocardiogram with Doppler and color Doppler. Blood Pressure: 122/73 mmHg INDICATION Pedal edema CHF exacerbation RISK FACTORS Height: 5'3", Weight: 167 DIMENSIONS LVDd 4.9 (3.8-5.7cm) LA (2D) 3.4 (1.9-4.0cm) Aortic Root 2.9 (2.0-3.7cm) LVDs 3.3 (2.5-4.0cm) LA (MM) (1.9-4.0cm) Aortic Cusp Exc 1.8 (1.5-2.0cm) EF (%) 60.0 (55-70%) Rt. Atrium 3.8 (1.9-4.0cm) Asc. Aorta cm IVSd 0.9 (0.7-1.1cm) RV (D) 3.6 (1.8-2.4cm) PWd 0.9 (0.7-1.1cm) Mitral Valve Mitral Mitral Stenosis E wave 0.87m/s MV Mean GR. mmHg A wave 0.83m/s MV Peak GR. mmHg E/A ratio 1.0 2D MVA cm2 DECEL Time 330ms PRESS 1/2 Time ms Aortic Valve Aortic Valve Aortic Stenosis V1 1.12m/s AO Mean GR. 5mmHg V2 1.44m/s AO Peak GR. 8mmHg LVOT Diameter 2.0 (1.8-2.4cm) Doppler SARAH 2.44cm2 Pulmonic Valve V2 0.85m/s Tricuspid Valve TR Velocity 2.43m/s RVSP 32mmHg Conclusion lvef 55% normal lv function rv enlarged no severe valve abnormality noted
[2025-03-11] MEDS: DICYCLOMINE HCL 10 MG CAP PO PRN (16:30)
[2025-03-11] MEDS: LIDOCAINE 5% TOPICAL PATCH TOP SCH (16:30)
[2025-03-11 17:00] VITALS: BP 100/60; PULSE 54; RESP 17; TEMP 98; O2SAT 94
[2025-03-11 21:00] VITALS: BP 119/69; PULSE 55; RESP 14; TEMP 97.8; O2SAT 95
[2025-03-12 01:00] VITALS: BP 91/58; PULSE 60; RESP 14; TEMP 97.9; O2SAT 98
[2025-03-12 05:00] VITALS: BP 114/49; PULSE 95; RESP 12; TEMP 97.9; O2SAT 51
[2025-03-12 06:03] LABS: Hematocrit 38.5 % (36.0-46.0); Hemoglobin 12.8 g/dL (12.2-16.2); Mean Corpuscular Hemoglobin 32.8 pg (28.0-32.0); Mean Corpuscular Volume 98.6 fL (80.0-100.0); Nucleated Red Blood Cells % 0.4 %
[2025-03-12 06:26] LABS: Anion Gap 9 (5-15); Carbon Dioxide 30 mmol/L (20-31); Chloride 101 mmol/L (98-107); Potassium 3.9 mmol/L (3.5-5.1); Sodium 140 mmol/L (136-145)
[2025-03-12 06:28] LABS: Calcium 9.6 mg/dL (8.7-10.4)
[2025-03-12 06:33] LABS: BUN/Creatinine Ratio 18.4 (10.0-20.0); Blood Urea Nitrogen 14 mg/dL (9-23); Glucose 89 mg/dL (74-106)
[2025-03-12 09:00] VITALS: BP 104/59; PULSE 56; RESP 19; TEMP 97.9; O2SAT 97
[2025-03-12] MEDS: ASPirin-EC 81 mg tab PO SCH (10:42)
[2025-03-12] MEDS: ENOXAPARIN SOD 40 MG/0.4 ML SYRINGE SC SCH (10:44)
--- NOTE | 2025-03-12 11:32 | DVHDSRES ---
Discharge Summary Date of Admission Resident Creating Document: ANDRIA JERONIMO RESIDENT Mar 10, 2025 at 16:48 Date of Discharge: Mar 12, 2025 Labs/Diagnostic Data: Laboratory Results Test 03/12/25 04:35 03/11/25 10:56 03/11/25 05:35 03/10/25 10:49 White Blood Count 6.2 10^3/uL (4.4-10.8) Red Blood Count 3.90 10^6/uL (4.0-5.20) Hemoglobin 12.8 g/dL (12.2-16.2) Hematocrit 38.5 % (36.0-46.0) Mean Corpuscular Volume 98.6 fL (80.0-100.0) Mean Corpuscular Hemoglobin 32.8 pg (28.0-32.0) Mean Corpuscular Hemoglobin Concent 33.3 g/dL (32.0-36.0) Red Cell Distribution Width 14.4 % (11.8-14.3) Platelet Count 303 10^3/uL (140-450) Mean Platelet Volume 8.2 fL (6.9-10.8) Neutrophils (%) (Auto) 48.5 % (37.0-80.0) Lymphocytes (%) (Auto) 35.3 % (10.0-50.0) Monocytes (%) (Auto) 11.3 % (0.0-12.0) Eosinophils (%) (Auto) 2.9 % (0.0-7.0) Basophils (%) (Auto) 2.0 % (0.0-2.0) Neutrophils # (Auto) 3.0 10 ^3/uL (1.6-8.6) Lymphocytes # (Auto) 2.2 10 ^3/uL (0.4-5.4) Monocytes # (Auto) 0.7 10 ^3/uL (0-1.3) Eosinophils # (Auto) 0.2 10 ^3/uL (0-0.8) Basophils # (Auto) 0.1 10 ^3/uL (0-0.2) Nucleated Red Blood Cells 0.4 % Sodium Level 140 mmol/L (136-145) Potassium Level 3.9 mmol/L (3.5-5.1) Chloride Level 101 mmol/L (98-107) Carbon Dioxide Level 30 mmol/L (20-31) Anion Gap 9 (5-15) Blood Urea Nitrogen 14 mg/dL (9-23) Creatinine 0.76 mg/dL (0.550-1.02) Glomerular Filtration Rate Calc 84 mL/min (>90) BUN/Creatinine Ratio 18.4 (10.0-20.0) Serum Glucose 89 mg/dL (74-106) Hemoglobin A1c 5.7 % A1C (<5.7) Calcium Level 9.6 mg/dL (8.7-10.4) Vitamin B12 Level 640 pg/mL (211-911) Vitamin D 25-Hydroxy 43.1 ng/mL (30.0-100) SARS-CoV-2 Antigen (Rapid) Negative (NEGATIVE) Total Bilirubin 0.9 mg/dL (0.2-1.0) Aspartate Amino Transferase (AST) 22 U/L (13-40) Alanine Aminotransferase (ALT) 15 U/L (7-40) Alkaline Phosphatase 89 U/L (46-116) Total Protein 6.5 g/dL (5.7-8.2) Albumin 4.0 g/dL (3.2-4.8) Thyroid Stimulating Hormone (TSH) 21.00 uIU/mL (0.55-4.78) Free Thyroxine (T4) Calculated 1.00 ng/dL (0.89-1.76) Free Triiodothyronine (T3) pg/mL 2.57 pg/mL (2.3-4.2) B-Type Natriuretic Peptide 88.50 pg/mL (0-100) Lipase 33 U/L (12-53) Test 03/10/25 10:23 Urine Color Light-yellow (Yellow) Urine Clarity Clear (Clear) Urine pH 6.5 (5.0-9.0) Urine Specific [place] 1.020 (1.001-1.035) Urine Protein Trace (Negative) Urine Ketones Negative (Negative) Urine Blood Negative /uL (Negative) Urine Nitrite Negative (Negative) Urine Bilirubin Negative (Negative) Urine Urobilinogen Normal mg/dL (Negative) Urine Leukocyte Esterase Negative /uL (Negative) Urine RBC 2 /hpf (0 - 4) Urine Microscopic WBC < 1 /HPF (0-5) Urine Squamous Epithelial Cells Few /hpf (<5) Urine Bacteria None seen /hpf (None Seen) Urine Hyaline Casts Few /lpf (0 - 2) Urine Mucus Few (None Seen) Urine Glucose Normal mg/dL (Normal) Other Laboratory Tests 03/12/25 04:35 Brief Hx & Hospital Course: This is a 69 Year old female with past medical history of coronary angioplasty status post stent placement LAD 2015(by Dr. Toth) HLD, PUD, hypothyroidism, RA, anxiety disorder, chronic pain and skin cancer came to ER with a complaint of bilateral lower extremity swelling. Patient noted bilateral lower extremity swelling for few days switching gradually worsened day by day. Patient also stated unable to lie down in flat position, needs extra pillow for sleep. Patient denies any recent history of recent trauma, MVA or falls. Patient currently denies any chest pain, SOB, headache, abdominal pain, dysuria or any focal weakness. Patient compliance with her medication. Patient follow-up with cardiology Dr. Call. And rheumatology with Dr. Montoya. Past medical history: As above Past surgical history: Appendectomy, cholecystectomy, hysterectomy, CAD with stent, tonsillectomy Family history: Strong family history of coronary artery disease Personal history: Denies any smoking or illicit drug Allergy: Bacitracin, ciprofloxacin, latex, neomycin, metoprolol 10, polymyxin, promethazine, steroid PCP: Dr. Toth. Hospital course: Patient admitted bilateral lower extremity swelling due to acute on chronic diastolic heart failure. Echo on 05/12/2024 showed LVEF 55% normal daily function and RV enlargement, no severe valve abnormality. Lab showed BNP 88.50. Bilateral lower extremity Venous duplex shows no sonographic evidence of Venous thrombosis. Patient treated conservatively with IV diuretics and her symptoms significantly improved. Patient also past medical history of hypothyroidism and TSH level showed 21.00 with total T3- and FT4. Patient noncompliance with hypothyroid medication especially taking with foods when she could remember. Patient counseled, take medicine in empty stomach which increased the effectiveness of the medicine. On examination, bilateral lower extremity venous engorgement likely due to venous insufficiency. Patient advised to use compression socks. On examination on 03/12/2025, patient currently denies any SOB, chest pain, headache, cough, abdominal pain, dysuria or any other acute distress. Patient is hemodynamically stable for discharge. Patient has received maximum benefit from inpatient treatment. Time was given to answer patient's questions and concerns in layman terms and explained by RN. Patient verbalized understanding and agreed with treatment and follow-up. Patient was recommended to return to ER if he experiences any worsening symptoms not limited to current symptoms. Follow-up with PCP within 2 weeks and outpatient clinic Monday morning 8:00 a.m. on 03/14/2025. Medications sent to pharmacy. Examination General Appearance: Alert, Oriented X3, Cooperative, No acute distress HEENT: Atraumatic, PERRLA Respiratory: Clear to auscultation, Normal air movement Cardiovascular: Regular rate Abdominal: Normal bowel sounds, Soft, No tenderness, No hepatospenomegaly Extremities: No clubbing, No cyanosis, no edema , no ulceration Skin: No rashes Neuro: Normal gait, Normal speech Psych/Mental Status: Mental status NL, Mood NL Case discussed with patient, nurse, Dr. Caraballo. More than 27 minute spent with patient. Operations or Procedures ORDERING PHYSICIAN: VALENTE ZARAGOZA MD PROCEDURE(s): ABPL - CT AB PEL WO CON-NO ORAL OR IV REASON: flank pain ORDER NUMBER(s): [id number], ACCESSION NUMBER(s): [id number] INDICATION: flank pain TECHNIQUE: CT axial images of the abdomen and pelvis are obtained without contrast. Coronal and sagittal reformats were obtained. Radiation Dose Information: CTDI volume is 12.75 mGy. Dose-length product is 602.16 mGy*cm COMPARISON: 03/07/2025 FINDINGS: There is limited interpretation of the abdomen and pelvis without administration of intravenous contrast. Lung bases demonstrate atelectasis. Adrenal glands, spleen, pancreas and liver unremarkable in shape. Cholecystectomy. Kidneys demonstrate no hydronephrosis /nephrolithiasis. Stomach is partially distended. Small bowel loops are normal in caliber. Large bowel relatively nondistended. No secondary signs for appendicitis are present. Aortic atherosclerotic disease and tortuosity. Bladder partially distended. No free pelvic fluid. No inguinal lymphadenopathy. [id number] bilateral sacroiliac degenerative joint disease. Thoracolumbar dextrocurvature. Moderate thoracolumbar degenerative disc disease. IMPRESSION: Limited evaluation without contrast. No evidence for obstructive uropathy. Cholecystectomy. Other findings as described. ATED BY: LEONIDES VERGARA MD DICTATED DATE/TIME: 03/10/25 8821 ORDERING PHYSICIAN: BRYCE PAEZ PROCEDURE(s): BLDVT - BiLat Lower DVT REASON: Bilateral leg swelling ORDER NUMBER(s): [id number], ACCESSION NUMBER(s): [id number] CLINICAL HISTORY: Bilateral leg swelling TECHNIQUE: Color and duplex doppler imagine of the bilateral lower extremity veins was performed. Vessel compression and augmentation if possible was also performed. COMPARISON: None FINDINGS: Right Lower Extremity: Right common femoral vein: Normal compressibility and flow. Right superficial femoral vein: Normal compressibility and flow. Right popliteal vein: Normal compressibility and flow. Left Lower Extremity: Left common femoral vein: Normal compressibility and flow. Left superficial femoral vein: Normal compressibility and flow. Left popliteal vein: Normal compressibility and flow. IMPRESSION: NO SONOGRAPHIC EVIDENCE FOR DEEP VENOUS THROMBOSIS IN THE BILATERAL LOWER EXTREMITY VEINS. ATED BY: ADRIANNE LARIOS MD DICTATED DATE/TIME: 03/11/25 1016 ORDERING PHYSICIAN: VIKTOR MCINTYRE PROCEDURE(s): ECIDC - ECHO 2D MODE CARDIAC DOP REASON: Pedal edema, CHF exacerbation ORDER NUMBER(s): [id number], ACCESSION NUMBER(s): [id number] APPROVED REPORT EXAM: Two-dimensional and M-mode echocardiogram with Doppler and color Doppler. Blood Pressure: 122/73 mmHg INDICATION Pedal edema CHF exacerbation RISK FACTORS Height: 5'3", Weight: 167 DIMENSIONS LVDd 4.9 (3.8-5.7cm) LA (2D) 3.4 (1.9-4.0cm) Aortic Root 2.9 (2.0- 3.7cm) LVDs 3.3 (2.5-4.0cm) LA (MM) (1.9-4.0cm) Aortic Cusp Exc 1.8 (1.5- 2.0cm) EF (%) 60.0 (55-70%) Rt. Atrium 3.8 (1.9-4.0cm) Asc. Aorta cm IVSd 0.9 (0.7-1.1cm) RV (D) 3.6 (1.8-2.4cm) PWd 0.9 (0.7-1.1cm) Mitral Valve Mitral Mitral Stenosis E wave 0.87m/s MV Mean GR. mmHg A wave 0.83m/s MV Peak GR. mmHg E/A ratio 1.0 2D MVA cm2 DECEL Time 330ms PRESS 1/2 Time ms Aortic Valve Aortic Valve Aortic Stenosis V1 1.12m/s AO Mean GR. 5mmHg V2 1.44m/s AO Peak GR. 8mmHg LVOT Diameter 2.0 (1.8-2.4cm) Doppler SARAH 2.44cm2 Pulmonic Valve V2 0.85m/s Tricuspid Valve TR Velocity 2.43m/s RVSP 32mmHg Conclusion lvef 55% normal lv function rv enlarged no severe valve abnormality noted SIGNED BY: NICOL BURK MD SIGNED DATE/TIME: 03/11/25 5335 Condition at Discharge: Stable Final Diagnosis/Problems List Acute on chronic diastolic heart failure. Coronary angioplasty status post stent placement LAD 2015(by Dr. Toth) Mixed hyperlipidemia Bilateral lower extremity edema Hypothyroidism Muscle spasm Peripheral neuropathy Cervicalgia Rheumatoid arthritis GERD Discharge Disposition: Home Discharge Instruct/Medications Diet: Cardiac 2g Na,low cholest Activity: No Restrictions, As Tolerated Follow Up/Referral: PCP Cardiology follow-up within 2 weeks of discharge. Outpatient continuity clinic follow-up Monday 8:00 a.m. on 03/14/2025 Scheduled Atorvastatin Calcium (Atorvastatin Calcium), 1 TAB PO HS, (Reported) Cholecalciferol (Vitamin D3), 1 CAP PO DAILY, (Reported) Furosemide (Furosemide), 1 TAB PO DAILY, (Reported) Gabapentin (Gabapentin), 1 TAB PO TID, (Reported) Levothyroxine Sodium (Levothyroxine Sodium), 1 TAB PO DAILY, (Reported) Morphine Sulfate (Morphine Sulfate Cr), 1 TAB PO BID, (Reported) Pantoprazole Sodium Sesquihydr (Pantoprazole Sodium Dr), 1 TAB PO BID, (Reported) Potassium Chloride (Potassium Chloride ER), 1 TAB PO DAILY, (Reported) Tizanidine Hydrochloride (Tizanidine Hcl), 0.5 TAB PO HS, (Reported) Scheduled PRN Dicyclomine Hcl (Dicyclomine Hcl), 1 CAP PO BIDPRN PRN, (Reported) Hydrocodone-Acetaminophen (Hydrocodone Bitartrate/AC 10-325 mg), 1 TAB PO TIDP PRN, (Reported) Discontinued Medications Ondansetron (Zofran), 4 MG PO Q8HPRN PRN Discharge Statement: "Patient was advised to return to the ER or call 911 if any headaches, dizziness, shortness of breath, chest pain, abdominal pain, bleeding, fevers, or worsening of medical condition. Patient was counseled about treatment plan, medications, possible side effects, patientverbalized understanding. All questions were answered to the best of my ability. This discharge took greater then 30 minutes in planning, reviewing documentation, counseling the patient, and discussing with other team members." ASSESSMENT ASSESSMENT Assessment Acute on chronic diastolic heart failure. Visit Coding STANDARD RES Billing Provider: RAISA CARABALLO MD Date of Service if different f: Mar 12, 2025 Common Visit Codes: [id number] INP/OBS CARE (HIGH) Secondary Visit Codes: [id number] CARE PLAN 30 MINUTES ANDRIA JERONIMO RESIDENT Mar 12, 2025 11:32
[2025-03-12 13:00] VITALS: BP 99/70; PULSE 81; RESP 18; TEMP 98.1; O2SAT 95
[2025-03-12 13:44] VITALS: BP 99/70; PULSE 81; RESP 18; TEMP 98.1; O2SAT 97
[2025-03-19] MEDS ORDERED: BECL80AE11 INH (11:40)
[2025-03-19] MEDS ORDERED: ALBU108A5 INH (11:40)
[2025-03-21] MEDS ORDERED: LEVO100T8 PO (16:57)
[2025-03-23] MEDS ORDERED: DICL-545 EXT (11:40)
[2025-03-23] MEDS ORDERED: MORP1TAB12 PO (16:57)
== END 2025-03-12 14:30 | disposition home or self-care (01) | DRG 291 ==
LOC: ER 10:14 → OVERFLOW 16:48 → EAST 22:08
PROVIDERS: ADMIT Student in an Organized Health Care Education/Training Program; ATTEND Student in an Organized Health Care Education/Training Program
DX: I11.0 Hypertensive heart disease with heart failure (principal); I50.33 Acute on chronic diastolic (congestive) heart failure; D72.829 Elevated white blood cell count, unspecified; E03.9 Hypothyroidism, unspecified; M06.9 Rheumatoid arthritis, unspecified; E78.5 Hyperlipidemia, unspecified; K21.9 Gastro-esophageal reflux disease without esophagitis; G89.29 Other chronic pain; F41.9 Anxiety disorder, unspecified; G62.9 Polyneuropathy, unspecified; Z91.040 Latex allergy status; Z88.1 Allergy status to other antibiotic agents; Z90.710 Acquired absence of both cervix and uterus; Z90.49 Acquired absence of other specified parts of digestive tract; Z87.11 Personal history of peptic ulcer disease; Z95.5 Presence of coronary angioplasty implant and graft; E78.2 Mixed hyperlipidemia; Z82.49 Family history of ischemic heart disease and other diseases of the circulatory system; Z91.199 Patient's noncompliance with other medical treatment and regimen due to unspecified reason; Z85.828 Personal history of other malignant neoplasm of skin
CPT/HCPCS: 36415; 74176; 80048; 80053; 81001; 82306; 82607; 83036; 83690; 83880; 84439; 84443; 84481; 85025; 87426; 93306; 93970; 96361; 96374; 96375; G0378; J2405